=== PATIENT | male | born 1960 | race Caucasian/White ===

== ENCOUNTER 2023-04-08 13:23 | Emergency (ER) | payer MEDICAID, SELFPAY ==
[~2023-04-08] VITALS: Ht 152.4 cm; Wt 81.8 kg
[2023-04-08] MEDS ORDERED: ATOR40TA75 PO ×2 (14:17→16:50)
[2023-04-08] MEDS ORDERED: TIOT18INH INH ×2 (14:17→16:50)
[2023-04-08] MEDS ORDERED: INSU100I48 SQ ×2 (14:17→16:50)
[2023-04-08] MEDS ORDERED: METF10004 PO ×2 (14:17→16:50)
[2023-04-08] MEDS ORDERED: LASI20TA3 PO ×2 (14:17→16:50)
[2023-04-08] MEDS ORDERED: LISI20TA33 PO ×2 (14:17→16:50)
[2023-04-08] MEDS ORDERED: AMLO1TAB25 PO ×2 (14:17→16:50)
[2023-04-08] MEDS ORDERED: DULO30CA9 PO ×2 (14:17→16:50)
[2023-04-08] MEDS ORDERED: DICL25TA11 PO ×2 (14:17→16:50)
[2023-04-08 17:02] VITALS: BP 148/67
== END 2023-04-08 17:05 | disposition left against medical advice (07) ==
LOC: M ED 14:14
DX: E11.65 Type 2 diabetes mellitus with hyperglycemia (principal); Z76.0 Encounter for issue of repeat prescription; I10 Essential (primary) hypertension; J44.9 Chronic obstructive pulmonary disease, unspecified; F17.200 Nicotine dependence, unspecified, uncomplicated; Z79.84 Long term (current) use of oral hypoglycemic drugs; Z79.899 Other long term (current) drug therapy